=== PATIENT | female | born 1950 | race Caucasian/White ===

== ENCOUNTER → 2016-11-07 | Outpatient (CLI) | payer OTHER ==
--- NOTE | 2016-11-09 08:30 | MM ---
Reason for exam: screening (asymptomatic). Last mammogram was performed 1 year and 2 months ago. History: Patient is postmenopausal. Family history of breast cancer in sister. Benign excisional biopsy of the left breast, June 23, 1998. Physical Findings: A clinical breast exam by your physician is recommended on an annual basis and results should be correlated with mammographic findings. MG Screening Mammo w CAD Bilateral CC and MLO view(s) were taken. Prior study comparison: September 01, 2015, mammogram, performed at [facility]. September 01, 2014, mammogram, performed at [facility]. There are scattered fibroglandular densities. No significant changes when compared with prior studies. ASSESSMENT: Negative, BI-RAD 1 RECOMMENDATION: Routine screening mammogram of both breasts in 1 year. Manage on a clinical basis with regard to right breast pain.
== END | disposition home or self-care (01) ==
LOC: RADMAMWWP 11:09
PROVIDERS: ATTEND Family Medicine
DX: Z12.31 Encounter for screening mammogram for malignant neoplasm of breast (principal)

== ENCOUNTER → 2018-03-20 | Outpatient (CLI) | payer MEDICARE ==
--- NOTE | 2018-03-21 14:21 | MM ---
Reason for exam: screening (asymptomatic). Last mammogram was performed 1 year and 4 months ago. History: Patient is postmenopausal. Family history of breast cancer in sister. Benign excisional biopsy of the left breast, June 23, 1998. Physical Findings: A clinical breast exam by your physician is recommended on an annual basis and results should be correlated with mammographic findings. MG 3D Screening Mammo W/Cad Bilateral CC and MLO view(s) were taken. Prior study comparison: November 07, 2016, bilateral MG screening mammo w CAD. September 01, 2015, mammogram, performed at [facility]. There are scattered fibroglandular densities. Benign appearing bilateral calcifications. No suspicious abnormality. No significant changes when compared with prior studies. ASSESSMENT: Benign, BI-RAD 2 RECOMMENDATION: Routine screening mammogram of both breasts in 1 year.
== END | disposition home or self-care (01) ==
LOC: RADMAMWWP 14:55
PROVIDERS: ATTEND Obstetrics & Gynecology
DX: Z12.31 Encounter for screening mammogram for malignant neoplasm of breast (principal)
CPT/HCPCS: 77063; 77067

== ENCOUNTER → 2018-06-25 | Outpatient (CLI) | payer MEDICARE ==
--- NOTE | 2018-06-25 13:32 | ECHOS ---
STRESS ECHOCARDIOGRAM DATE OF SERVICE: 06/25/2018 INDICATIONS: Dyspnea MEDICATIONS: Zetia, aspirin, propranolol. BASELINE HEART RATE: 85 BASELINE BLOOD PRESSURE: 146/55 MAXIMUM HEART RATE: 150 MAXIMUM BLOOD PRESSURE: 205/63 85% MPHR: 131 100% MPHR: 154 METS: 4.4 MAXIMUM STAGE REACHED: I TOTAL EXERCISE TIME: 3 minutes CLINICAL INFORMATION: Patient was exercised for a total period of 3 minutes. A peak heart rate of 150 was achieved. Maximum blood pressure of 205/63 mmHg was noted. Resting EKG shows normal sinus rhythm with normal UT interval and QRS duration and normal ST-T waves. No ST- segment depression suggestive of ischemia is noted. The baseline echocardiographic images reveal normal left ventricular chamber size with normal left ventricular systolic function. In the immediate postexercise period, normal increase in the wall thickness and contractility is noted. FINAL IMPRESSION: This stress echocardiographic study is negative for stress-induced ischemia. EKG portion of the stress test is not suggestive of ischemia. Patient's exercise tolerance is average. MMODL / IJN: [id number] /
== END | disposition home or self-care (01) ==
LOC: RADNMMAIN 09:08
PROVIDERS: ATTEND Family Medicine
DX: R06.00 Dyspnea, unspecified (principal)
CPT/HCPCS: 93351

== ENCOUNTER → 2018-12-06 | Outpatient (CLI) | payer MEDICARE ==
--- NOTE | 2018-12-06 12:57 | CT ---
EXAMINATION TYPE: CT wrist RT wo con DATE OF EXAM: 12/06/2018 COMPARISON: None HISTORY: Right wrist fx CT DLP: [address] of the right wrist with reconstruction imaging. TECHNIQUE: Unenhanced CT of the right wrist was performed with bone and soft tissue window settings s ubmitted in the axial coronal and sagittal planes. At a separate workstation 3-D TR imaging was obta ined. FINDINGS: There is comminuted distal radial fracture with intra-articular extension. Displacement of the 5 mm. There is ulnar styloid fracture component noted. In addition there is tiny ossific density adjacent to the lunate felt to reflect chip fracture. No additional fractures are seen within the fie ld-of-view. Soft tissue air is noted along the dorsum of the wrist. Overlying cast material is also s een. Soft tissue edema noted. IMPRESSION: 1. Comminuted distal radial fracture with intra-articular extension. Ulnar styloid component. 2. Small chip fracture adjacent to the carpal lunate.
== END | disposition home or self-care (01) ==
LOC: RADCTMAIN 12:20
PROVIDERS: ATTEND Orthopaedic Surgery
DX: S52.571A Other intraarticular fracture of lower end of right radius, initial encounter for closed fracture (principal); S62.121A Displaced fracture of lunate [semilunar], right wrist, initial encounter for closed fracture

== ENCOUNTER 2018-12-21 10:03 | Day surgery (SDC) | payer MEDICARE ==
[2018-12-19 11:27] VITALS: BMI 31.7
[~2018-12-21 10:03] MED LIST: ceFAZolin IN SWFI 2 GM/20 ML SYRINGE IVP ONE
[2018-12-21 12:23] LABS: Glucose,Whole Blood 103 mg/dL (75-99)
[2018-12-21] MEDS ORDERED: LACTATED RINGERS 1,000 ML IV ONE ×3 (12:30→19:45)
[2018-12-21] MEDS ORDERED: ONDANSETRON 4 MG/2 ML VIAL IVP ONE (12:30)
[2018-12-21] MEDS ORDERED: DEXAMETHASONE SOD PHOSPHATE 10 MG/ML 1 ML VIAL IV ONE (12:30)
[2018-12-21] MEDS ORDERED: MIDAZOLAM 2 MG/2 ML VIAL IVP ONE (12:33)
--- NOTE | 2018-12-21 13:36 | P.ONQ ---
Anesthesiology Proc Note - PNB - Peripheral Nerve Block Performed Right Infraclavicular Single Time Out Performed: Yes Procedure Start Time: 12:33 Procedure Stop Time: 12:39 Indication: Acute Post-Operative Pain, Requested by physician Sedation Type: Sedate with meaningful contact maintained Preparation: Sterile Prep Position: Supine Needle Size: 50mm (2") Needle Gauge: 21 Technique: Ultrasound (ropi .5% 30cc) Blood Aspirated: No Pain Paresthesia on Injection Noted: No Resistance on Injection: Normal Events: Uneventful and Well Tolerated
--- NOTE | 2018-12-21 15:16 | P.HPADDEND ---
H&P Addendum H&P Addendum Date: 12/21/18 The patient's surgery was delayed due to a persistent cough. She was evaluated outpatient and prescribed a steroid and an expectorant. She states that the symptoms are much improved. Patient's pulmonary status was discussed with anesthesia team. All are in agreement to proceed with surgery today.
[2018-12-21] MEDS ORDERED: GLYCOPYRROLATE 0.2 MG/ML 2 ML VIAL ONE (15:19)
[2018-12-21] MEDS ORDERED: ROPIVACAINE 5 MG/ML 30 ML VIAL ONE (15:19)
[2018-12-21] MEDS ORDERED: MIDAZOLAM 2 MG/2 ML VIAL ONE (15:19)
[2018-12-21] MEDS ORDERED: fentaNYL (PF) 50 MCG/ML 2 ML AMP ONE (15:19)
[2018-12-21] MEDS ORDERED: SUCCINYLCHOLINE CHLORIDE 100 MG/5 ML SYR IV ONE (15:19)
[2018-12-21] MEDS ORDERED: NEOSTIGMINE 1 MG/ML 10 ML VIAL ONE (15:19)
[2018-12-21] MEDS ORDERED: PROPOFOL 10 MG/ML 20 ML VIAL IV ONE (15:19)
[2018-12-21] MEDS ORDERED: LIDOCAINE 1% INJ 10MG/ML (20 ML MDV) ONE (15:19)
[2018-12-21] MEDS ORDERED: ROCURONIUM BROMIDE 10 MG/ML 10 ML VIAL IV ONE (15:19)
[2018-12-21] MEDS ORDERED: BUPIVACAINE-EPI 0.5%-1:200,000 10 ML VIAL SQ ONE ×2 (15:59→19:25)
[2018-12-21 19:48] VITALS: TEMP 98.2
[2018-12-21 21:01] VITALS: BP 111/80; PULSE 80; RESP 16
[2018-12-21] MEDS ORDERED: HYDROcodone/APAP 7.5-325MG 1 EACH TAB PO ONE (21:34)
--- NOTE | 2018-12-22 07:52 | XR ---
EXAMINATION TYPE: XR wrist limited RT, FL guidance operating room DATE OF EXAM: 12/21/2018 CLINICAL HISTORY: Fluoroscopic documentation for an open reduction internal fixation of the right wri st TECHNIQUE: Fluoroscopy. COMPARISON: None. FINDINGS: Fluoroscopic guidance was provided during procedure performed by Dr. Sow. A total of 1 minute and 50 seconds of fluoroscopic time was utilized during the procedure and 6 spot images w as acquired. IMPRESSION: As Above.
--- NOTE | 2018-12-22 14:50 | P.OP ---
Date of Procedure: 12/21/18 Preoperative Diagnosis: Comminuted, displaced -punch intra-articular right distal radius fracture Postoperative Diagnosis: Comminuted, displaced -punch intra-articular right distal radius fracture Procedure(s) Performed: Open reduction and internal fixation of intra-articular right distal radius fracture (greater than 3 fragments). Implants: Acumed Acu-Loc 2 dorsal distal radius plate with locking and cortical screws. Cr ushed cancellous bone. Anesthesia: DEYSIA, regional Surgeon: Kelvin Sow Puttying And Calking Supervisor #1: Janeth Garcia Estimated Blood Loss (ml): 40 Pathology: none sent Condition: stable Disposition: PACU Indications for Procedure: The patient is a 68 year-old female who experienced a mechanical fall on her right wrist, resulting in a displaced distal radius fracture. Preoperative CT scan showed a complex fracture pattern with multiple intra-articular fragments. Surgical treatment was recommended. Surgery was scheduled earlier but was postponed, pending preoperative evaluation of an ongoing upper respiratory infection. Risks and benefits were discussed in the office; the patient expressed understanding and wished to proceed with surgery. Consent forms were signed. The operative site was confirmed and marked. Description of Procedure: The patient was administered a regional nerve block by the anesthesia team then brought to the operating suite. The patient was positioned supine with the operative limb on an arm board. All bony prominences were well-padded. Anesthesia was administered uneventfully. Prophylactic IV antibiotics were administered. A tourniquet was placed on the operative arm which was then prepped and draped in standard, sterile fashion. A timeout was performed which confirmed the patient, the operative side, the site and the procedure to be performed. All team members expressed agreement. The limb was exsanguinated with an Esmarch and the tourniquet was inflated. The fracture was assessed from multiple views with intraoperative fluoroscopy. There was no gross motion of the fracture fragments; however, there was still a large step-off of the articular surface and significant depression of the dorsal aspect of the joint. Passive motion demonstrated restricted range of motion and the joint did not articulate smoothly. The decision was made to proceed with open reduction. A longitudinal dorsal incision was marked over the distal radius, in line with the third metacarpal. The skin was incised sharply and subcutaneous tissue were spread, coagulating crossing superficial vessels as needed. The EPL tendon was identified. The extensor retinaculum was incised and the EPL tendon was released. The second and fourth dorsal compartment tendons were subperiosteally elevated off the dorsal radius. Mathieu's tubercle was identified and found to be a separate fracture fragment, scarred down to the dorsal metaphysis. This was felt to be nonviable and was excised. An inverted T-shaped capsulotomy was performed. Numerous fracture lines were seen within the articular surface with large step- offs and diastases of the fracture fragments. There was a large, displaced radial styloid fragment with shortening of the radial column. The lunate fossa was actually three separate fragments with two coronal fracture lines extending into the sigmoid notch. There was depression of the central aspect of the scaphoid fossa with some small pieces of articular cartilage which were devoid of subchondral bone. These fragments were very small, quite damaged and felt to be nonviable and were removed. The dorsal rim fragment of the articular surface of the scaphoid fossa had healed down in a dorsally angulated position. The joint was thoroughly irrigated, removing hematoma and comminuted fracture fragments. A curette and dental pick were used to release fibrous tissue and mobilize the articular fragments. Two 0.062 K wires were percutaneously inserted into the radial styloid fragment. After extensive release of adhesions, the fracture was manually reduced with a combination of axial traction, ulnar deviation and palmar translation. Once radial column length was reestablished, the K wires were advanced into the metaphysis. Good provisional reduction was confirmed on orthogonal images. The fracture fragments of the lunate fossa were carefully manipulated and reduced. These were secured with a 0.035 K wire. The central aspect of the joint surface was still depressed with a large articular void. The decision was made to osteotomize the displaced dorsal rim articular fragment. A K wire was used to trephinate a bone block of the dorsal metaphysis below the articular fragment. Osteotomes were used to release and mobilized the fragment. This was carefully manipulated and positioned to fill the articular void. This was provisionally secured with a 0.035 K wire. This reestablished the articular contour quite well, with only a mild residual step-off of the articular surface on the radial aspect of the scaphoid fossa. A dorsal locking plate was selected. Bending irons were used to contour the plate which was then pinned to the dorsal radius. Fracture reduction and implant position were confirmed with orthogonal imaging. A cortical screw was drilled, measured and inserted to secure the plate to the shaft. Drilling with the aid of fluoroscopic guidance, two variable angle locking screws were inserted into the radial styloid fragment. Another variable angle screw was drilled and inserted in the same fashion to secure the plate to the intermediate column and lunate fossa fragments. Another locking screw was drilled and inserted to secure the osteotomized fragment. This this afforded acceptable but not solid stability to this piece. Crushed cancellous bone was packed into the subchondral void. All provisional K-wires were removed. An additional cortical screw was drilled and inserted to further secure the plate to the metaphysis. Final x-rays were obtained to confirm fracture reduction and implant position. A 20-degree inclined lateral view was obtained to confirm extra-articular screw placement. The wrist was then ranged under live fluoroscopy - no gross motion of the fracture fragments or fixation construct was appreciated. The wrist articulated smoothly without crepitus or grinding. There was no gross laxity or dorsal subluxation of the carpus, even before capsular repair. The joint was thoroughly irrigated. The capsule and dorsal radiocarpal ligaments were repaired with 3-0 Ethibond sutures. The extensor retinaculum was repaired with interrupted 2-0 Vicryl sutures with the EPL tendon left transposed superficially above this. Passive wrist, and digital flexion and extension showed no tethering or focal restriction of tendon gliding. The wound was copiously irrigated with normal saline. The tourniquet was released at 121 minutes and not reinflated for the remainder of the case. Hemostasis was obtained with pressure and electrocautery. The subcutaneous tissues were reapproximated with interrupted Vicryl sutures. The incision was closed with 4-0 nylon sutures. Marcaine with epinephrine was injected into the perioperative subcutaneous tissues for adjunctive postoperative pain control and hemostasis. A sterile dressing was applied followed by a resting volar splint with the wrist in neutral alignment. All sponge, needle and instrument counts were correct at the end of the case. The patient tolerated the procedure well and was taken to the recovery room in stable condition.
== END 2018-12-21 21:36 | disposition home or self-care (01) ==
LOC: OR 10:03
PROVIDERS: ATTEND Orthopaedic Surgery
DX: S52.571A Other intraarticular fracture of lower end of right radius, initial encounter for closed fracture (principal); E78.5 Hyperlipidemia, unspecified; F32.9 Major depressive disorder, single episode, unspecified; Z91.040 Latex allergy status; Z91.048 Other nonmedicinal substance allergy status; Z88.1 Allergy status to other antibiotic agents; Z79.52 Long term (current) use of systemic steroids; Z79.899 Other long term (current) drug therapy; Z87.891 Personal history of nicotine dependence; Z82.49 Family history of ischemic heart disease and other diseases of the circulatory system; Z83.3 Family history of diabetes mellitus; W00.0XXA Fall on same level due to ice and snow, initial encounter
CPT/HCPCS: 25609; 64415; 73100; C1713; C1762; J2250; J1100; J2710; J2405; J2001; J3010; J2795; J0330; J2704

== ENCOUNTER → 2019-06-04 | Outpatient (CLI) | payer MEDICARE ==
--- NOTE | 2019-06-04 15:07 | US ---
EXAMINATION TYPE: US thyroid st tissue head/neck DATE OF EXAM: 06/04/2019 COMPARISON: NONE CLINICAL HISTORY: R59.0 Localized enlarged lymph nodes. Pt states palpable lump right lateral neck ne ar right parotid gland/ pt states this area changes in size the last 2 years Right lateral neck at pt's palpable shows a small lymph node within right parotid gland= 0.9 x 0.3 x 0.5 cm/ right parotid gland appeared wnl, left parotid gland scanned for comparison IMPRESSION: Benign-appearing subcentimeter right superficial parotid lymph node seen on images saved.
== END | disposition home or self-care (01) ==
LOC: RADUSWWP 14:42
PROVIDERS: ATTEND Family Medicine
DX: R59.0 Localized enlarged lymph nodes (principal)
CPT/HCPCS: 76536

== ENCOUNTER → 2019-07-24 | Outpatient (CLI) | payer MEDICARE ==
--- NOTE | 2019-07-26 10:55 | MM ---
Reason for exam: screening (asymptomatic). Last mammogram was performed 1 year and 4 months ago. History: Patient is postmenopausal. Family history of breast cancer in sister. Benign excisional biopsy of the left breast, June 23, 1998. Physical Findings: A clinical breast exam by your physician is recommended on an annual basis and results should be correlated with mammographic findings. MG 3D Screening Mammo W/Cad Bilateral CC and MLO view(s) were taken. Prior study comparison: March 20, 2018, bilateral MG 3d screening mammo w/cad. November 07, 2016, bilateral MG screening mammo w CAD. The breast tissue is almost entirely fat. Far posterior and lateral asymmetric density appears to represent pectoralis on the XCCL view. No significant changes when compared with prior studies. ASSESSMENT: Negative, BI-RAD 1 RECOMMENDATION: Routine screening mammogram of both breasts in 1 year.
== END | disposition home or self-care (01) ==
LOC: RADMAMWWP 13:17
PROVIDERS: ATTEND Obstetrics & Gynecology
DX: Z12.31 Encounter for screening mammogram for malignant neoplasm of breast (principal)
CPT/HCPCS: 77063; 77067

== ENCOUNTER → 2021-03-23 | Outpatient (CLI) | payer MEDICARE ==
--- NOTE | 2021-03-23 10:57 | ECHOF ---
Referral Reason:R06.00 dyspnea MEASUREMENTS -------- HEIGHT: 162.6 cm WEIGHT: 70.3 kg BP: IVSd: 1.2 cm (0.6 - 1.1) LVIDd: 4.2 cm (3.9 - 5.3) LVPWd: 1.0 cm (0.6 - 1.1) IVSs: 1.3 cm LVIDs: 3.3 cm LVPWs: 1.2 cm LAESV Index (A-L): 21.45 ml/m Ao Diam: 2.7 cm (2.0 - 3.7) AV Cusp: 1.7 cm (1.5 - 2.6) MV EXCURSION: 18.547 mm (> 18.000) MV EF SLOPE: 71 mm/s (70 - 150) EPSS: 0.4 cm MV E Nirmal: 0.65 m/s MV DecT: 215 ms MV A Nirmal: 1.03 m/s MV E/A Ratio: 0.63 RAP: 5.00 mmHg RVSP: 33.76 mmHg FINDINGS -------- Sinus rhythm. This was a technically good study. LV size, wall thickness and systolic function are normal, with an EF greater than 55%. The left vitaly tricular size is normal. The right ventricle is normal in size. Normal LA size by volume 22+/-6 ml/m2. The right atrial size is normal. The aortic valve is trileaflet, and appears structurally normal. No aortic stenosis or regurgitation. Mild mitral regurgitation is present. Mild tricuspid regurgitation present. Right ventricular systolic pressure is normal at < 35 mmHg. There is no pulmonic regurgitation present. The aortic root size is normal. There is no pericardial effusion. CONCLUSIONS -------- 1. LV size, wall thickness and systolic function are normal, with an EF greater than 55%. 2. The left ventricular size is normal. 3. The right ventricle is normal in size. 4. Normal LA size by volume 22+/-6 ml/m2. 5. The right atrial size is normal. 6. The aortic valve is trileaflet, and appears structurally normal. No aortic stenosis or regurgitati on. 7. Mild mitral regurgitation is present. 8. Mild tricuspid regurgitation present. 9. The aortic root size is normal. 10. There is no pericardial effusion. VIDEO EDITING INTERN: Maureen Carias RDCS
--- NOTE | 2021-03-23 15:52 | US ---
EXAMINATION TYPE: US duplex aorta DATE OF EXAM: 03/23/2021 COMPARISON: NONE CLINICAL HISTORY: R06.00 dyspnea, Z82.49 family hx of aortic aneurysm. father had AAA, no symptoms pe r patient EXAM MEASUREMENTS: Abdominal Aorta: Proximal: 2.1 x 2.0cm Mid: 1.8 x 1.7cm Distal: 1.3 x 1.3cm Bifurcation: right = 0.9cm left = 0.8cm Normal caliber aorta seen IMPRESSION: 1. Normal abdominal aorta
== END | disposition home or self-care (01) ==
LOC: RADUSWWP 07:34
PROVIDERS: ATTEND Family Medicine
DX: I08.1 Rheumatic disorders of both mitral and tricuspid valves (principal); Z82.49 Family history of ischemic heart disease and other diseases of the circulatory system
CPT/HCPCS: 93306; 93979

== ENCOUNTER → 2021-05-04 | Outpatient (CLI) | payer MEDICARE ==
--- NOTE | 2021-05-05 11:11 | MM ---
Reason for exam: screening (asymptomatic). Last mammogram was performed 1 year and 9 months ago. History: Patient is postmenopausal. Family history of breast cancer in sister. Benign excisional biopsy of the left breast, June 23, 1998. Physical Findings: A clinical breast exam by your physician is recommended on an annual basis and results should be correlated with mammographic findings. MG 3D Screening Mammo W/Cad Bilateral CC and MLO view(s) were taken. Prior study comparison: July 24, 2019, bilateral MG 3d screening mammo w/cad. March 20, 2018, bilateral MG 3d screening mammo w/cad. There are scattered fibroglandular densities. Stable benign calcifications. There is no discrete abnormality. No significant changes when compared with prior studies. ASSESSMENT: Benign, BI-RAD 2 RECOMMENDATION: Routine screening mammogram of both breasts in 1 year.
== END | disposition home or self-care (01) ==
LOC: RADMAMWWP 16:20
PROVIDERS: ATTEND Obstetrics & Gynecology
DX: Z12.31 Encounter for screening mammogram for malignant neoplasm of breast (principal); Z78.0 Asymptomatic menopausal state; Z80.3 Family history of malignant neoplasm of breast
CPT/HCPCS: 77063; 77067

== ENCOUNTER → 2021-09-23 | Outpatient (CLI) | payer MEDICARE ==
--- NOTE | 2021-09-24 11:39 | USB ---
Reason for exam: clinical finding. History: Patient is postmenopausal. Family history of breast cancer in sister. Benign excisional biopsy of the left breast, June 23, 1998. Physical Findings: Nurse Summary: questionable spider bite in the left breast (nurse ms). US Breast LT Left complete breast ultrasound includes all four quadrants, the retroareolar region and axilla. Finding demonstrates a 0.5 x 0.7 x 0.2cm oval, irregular, hypoechoic lesion at 6 o'clock, correlate for possible sebaceous cyst or spider bite. These results were verbally communicated with the patient and result sheet given to the patient on 09/23/21. ASSESSMENT: Probably benign, BI-RAD 3 RECOMMENDATION: Ultrasound of the left breast in 6 months. Manage patient on a clinical basis.
== END | disposition home or self-care (01) ==
LOC: RADUSWWP 14:57
PROVIDERS: ATTEND Family Medicine
DX: R92.8 Other abnormal and inconclusive findings on diagnostic imaging of breast (principal); Z78.0 Asymptomatic menopausal state; Z80.3 Family history of malignant neoplasm of breast

== ENCOUNTER → 2022-03-15 | Outpatient (CLI) | payer MEDICARE ==
--- NOTE | 2022-03-15 14:47 | USB ---
Reason for Exam: Follow-up at short interval from prior study. Patient History: Menarche at age 12. First Full-Term at age 24. Postmenopausal. 06/23/1998, High risk Excisional Biopsy on the left side. Sister had breast cancer. Risk Values: Qian 5 year model risk: 4.3%. NCI Lifetime model risk: 12.1%. Technique: Method: Targeted. Prior Study Comparison: 03/20/2018 Bilateral Screening Mammogram, [facility]. 07/24/2019 Bilateral Screening Mammogram, [facility]. 05/04/2021 Bilateral Screening Mammogram, [facility]. 09/23/2021 Left Diagnostic Ultrasound, [facility]. Findings: The axilla of the left breast and the retroareolar of the left breast were scanned. Targeted scanning left breast 5-7 o'clock including the subareolar region and axilla. No solid or cystic lesion or axillary lymphadenopathy. The previously seen 7 mm cutaneous lesion at 6:00 has resolved. No solid or cystic lesions. Mammographic assessment at time of the patient's annual exam in 2 months. Overall Assessment: Probably benign, BI-RAD 3 Management: Diagnostic Mammogram of both breasts in 2 months. 1. A clinical breast exam by your physician is recommended on an annual basis and results should be correlated with mammographic findings. 2. Also, patient should continue monthly self breast exam. Electronically signed and approved by: Leandra Noe M.D. Radiologist
== END | disposition home or self-care (01) ==
LOC: RADUSWWP 14:15
PROVIDERS: ATTEND Family Medicine
DX: R92.8 Other abnormal and inconclusive findings on diagnostic imaging of breast (principal); Z78.0 Asymptomatic menopausal state; Z80.3 Family history of malignant neoplasm of breast

== ENCOUNTER → 2022-06-22 | Outpatient (CLI) | payer MEDICARE ==
--- NOTE | 2022-07-01 10:26 | MM ---
Reason for Exam: Additional evaluation requested from abnormal screening. Last mammogram was performed 1 year(s) and 2 month(s) ago. Patient History: Menarche at age 12. First Full-Term at age 24. Postmenopausal. 06/23/1998, High risk Excisional Biopsy on the left side. Sister had breast cancer. Risk Values: Qina 5 year model risk: 4.3%. NCI Lifetime model risk: 12.1%. Prior Study Comparison: 09/01/2014 Screening Mammogram, [facility]. 09/01/2015 Screening Mammogram, [facility]. 11/07/2016 Bilateral Screening Mammogram, [facility]. 03/20/2018 Bilateral Screening Mammogram, [facility]. 07/24/2019 Bilateral Screening Mammogram, [facility]. 05/04/2021 Bilateral Screening Mammogram, [facility]. 09/23/2021 Left Diagnostic Ultrasound, [facility]. 03/15/2022 Left US breast limited LT, [facility]. Tissue Density: There are scattered fibroglandular densities. Findings: Analyzed By CAD. Occasional scattered benign-appearing round calcification in the bilateral breasts redemonstrated. Stable distortion towards the left axilla. No suspicious new mass or group of microcalcification in either breast. Overall Assessment: Benign, BI-RAD 2 Management: Screening Mammogram of both breasts in 1 year. PACS downtime. Electronically signed and approved by: Davin Joseph M.D.
== END | disposition home or self-care (01) ==
LOC: RADMAMWWP 13:46
PROVIDERS: ATTEND Obstetrics & Gynecology
DX: R92.1 Mammographic calcification found on diagnostic imaging of breast (principal); Z78.0 Asymptomatic menopausal state; Z80.3 Family history of malignant neoplasm of breast
CPT/HCPCS: 77066; G0279; 77062

== ENCOUNTER → 2023-08-02 | Outpatient (CLI) | payer MEDICARE ==
--- NOTE | 2023-08-03 12:34 | MM ---
Reason for Exam: Screening (asymptomatic). Last mammogram was performed 1 year(s) and 1 month(s) ago. Patient History: Menarche at age 12. First Full-Term at age 24. Postmenopausal. 06/23/1998, High risk Excisional Biopsy on the left side. Sister had breast cancer. Risk Values: Qian 5 year model risk: 4.3%. NCI Lifetime model risk: 11.6%. Prior Study Comparison: 07/24/2019 Bilateral Screening Mammogram, [facility]. 05/04/2021 Bilateral Screening Mammogram, [facility]. 06/22/2022 Bilateral MG 3D diag mammo w/cad MARYJANE, [facility]. Tissue Density: The breast tissue is almost entirely fat. Findings: Analyzed By CAD. There is no suspicious group of microcalcifications or new suspicious mass in either breast. Overall Assessment: Negative, BI-RAD 1 Management: Screening Mammogram of both breasts in 1 year. . Patient should continue monthly self-breast exams. A clinical breast exam by your physician is recommended on an annual basis. This exam should not preclude additional follow-up of suspicious palpable abnormalities. Note on Qian scores and lifetime risk: 1. A Qian score greater than 3% is considered moderate risk. If this is the case, consider specialist referral to assess eligibility for a risk reducing agent. 2. If overall lifetime risk for the development of breast cancer is 20% or higher, the patient may qualify for future screening with alternating mammogram and breast MRI. Electronically signed and approved by: Neto Waldrop M.D. Radiologis
== END | disposition home or self-care (01) ==
LOC: RADMAMWWP 13:44
PROVIDERS: ATTEND Family Medicine
DX: Z12.31 Encounter for screening mammogram for malignant neoplasm of breast (principal); Z78.0 Asymptomatic menopausal state; Z80.3 Family history of malignant neoplasm of breast
CPT/HCPCS: 77063; 77067

== ENCOUNTER → 2024-09-05 | Outpatient (CLI) | payer MEDICARE ==
--- NOTE | 2024-09-09 08:25 | MM ---
Reason for Exam: Screening (asymptomatic). Last mammogram was performed 1 year(s) and 1 month(s) ago. Patient History: Menarche at age 12. First Full-Term at age 24. Postmenopausal. 06/23/1998, High risk Excisional Biopsy on the left side. Sister had breast cancer. Risk Values: Qian 5 year model risk: 4.7%. NCI Lifetime model risk: 12.0%. Prior Study Comparison: 05/04/2021 Bilateral Screening Mammogram, [facility]. 06/22/2022 Bilateral MG 3D diag mammo w/cad [facility]. 08/02/2023 Bilateral MG 3D screening mammo w/cad, [facility]. Tissue Density: There are scattered areas of fibroglandular density. Findings: Analyzed By CAD. There is no suspicious group of microcalcifications or new suspicious mass in either breast. 9 appearing calcifications. Overall Assessment: Benign, BI-RAD 2 Management: Screening Mammogram of both breasts in 1 year. . Patient should continue monthly self-breast exams. A clinical breast exam by your physician is recommended on an annual basis. This exam should not preclude additional follow-up of suspicious palpable abnormalities. Note on Qian scores and lifetime risk: 1. A Qian score greater than 3% is considered moderate risk. If this is the case, consider specialist referral to assess eligibility for a risk reducing agent. 2. If overall lifetime risk for the development of breast cancer is 20% or higher, the patient may qualify for future screening with alternating mammogram and breast MRI. [facility], , 09/09/2024 8:23 AM. Electronically signed and approved by: Tushar Mendoza M.D. Radiolog[facility]
== END | disposition home or self-care (01) ==
LOC: RADMAMWWP 12:57
PROVIDERS: ATTEND Family Medicine
DX: Z12.31 Encounter for screening mammogram for malignant neoplasm of breast (principal); Z78.0 Asymptomatic menopausal state; Z80.3 Family history of malignant neoplasm of breast; R92.323 Mammographic fibroglandular density, bilateral breasts
CPT/HCPCS: 77063; 77067